=== PATIENT | female | born 1965 | race Caucasian/White ===

== ENCOUNTER 2018-10-09 17:58 | Observation (INO) | payer OTHER ==
[~2018-10-09] VITALS: Ht 172.7 cm; Wt 81.6 kg
--- NOTE | 2018-10-09 18:14 | ER Report ---
History and Physical Time Seen By MD: 18:11 Hx. of Stated Complaint: PATIENT HAD A COLONOSCOPY THIS MORNING. SHE IS REPORTING NAUSEA, AND CHILLS. ORAL TEMP 102.5 HPI/ROS CHIEF COMPLAINT: fever, nausea, chills HISTORY OF PRESENT ILLNESS: This is a 53 year old female. She had a colonoscopy this morning, screening, with two polyp removed. This afternoon started having chills and has a fever. Nausea. Mild pain in left lower abdomen. Has been passing gas. Has not been able to drink much or eat much because of the nausea, but no vomiting. No cough or shortness of breath. No dysuria, hematuria or frequency. No sore throat or runny nose. No skin rashes. No headache, but is a little dizzy. Talked to Dr. Swanson who recommended coming in to the ER for further evaluation. Allergies: Coded Allergies: Penicillins (Verified Allergy, Intermediate, HIVES, 10/01/18) Home Meds No Active Prescriptions or Reported Meds Reviewed Nurses Notes: Yes Hx Smoking: No Smoking Status: Never Smoker Hx Substance Use Disorder: No Hx Alcohol Use: Yes Constitutional Vital Sign - Last 24 Hours 10/09/18 10/09/18 10/09/18 10/09/18 18:04 18:08 18:28 18:33 Temp 102.5 Pulse 103 96 Resp 24 B/P (MAP) 128/84 (99) 128/84 108/74 (85) Pulse Ox 91 90 O2 Delivery Room Air 10/09/18 10/09/18 10/09/18 10/09/18 18:38 19:08 19:30 19:38 Pulse 90 90 92 B/P (MAP) 105/68 (80) Pulse Ox 87 89 Physical Exam General Appearance: The patient is alert. No acute distress. Eyes: Pupils are equal, round. No pallor, injection or icterus. ENT: Mucous membranes are moist. Normal oral mucosa. Neck: Supple and non tender. Respiratory: Lungs are clear to auscultation. Cardiovascular: Regular rate and rhythm. No murmurs, gallops or rubs. Normal capillary refill. No edema. Gastrointestinal: Abdomen is soft, tender in left lower abdomen. Nondistended. No rebound or guarding. Normal active bowel sounds. No costovertebral angle tenderness with percussion. Neurological: Alert and oriented x3. No focal neurologic deficits Skin: Warm and dry. Musculoskeletal: Extremities are nontender. Full range of motion. No tenderness in palpation of the cervical, thoracic and lumbar spine. DIFFERENTIAL DIAGNOSIS: After history and physical exam, differential diagnosis was considered for fever and some nausea with mild lower abdominal pain after having a screening colonoscopy this morning. Medical Decision Making Data Points Result Diagram: 10/09/183 10/09/183 Laboratory Hematology Test 10/09/18 18:23 White Blood Count 10.4 k/uL (4.5-11.0) Red Blood Count 4.26 M/uL (4.17-5.56) Hemoglobin 13.4 g/dL (12.0-16.0) Hematocrit 38.4 % (34.0-47.0) Mean Corpuscular Volume 90.3 fL (80.0-96.0) Mean Corpuscular Hemoglobin 31.5 pg (26.0-33.0) Mean Corpuscular Hemoglobin Concent 34.9 g/dL (32.0-36.0) Red Cell Distribution Width 13.6 % (11.5-14.5) Platelet Count 163 K/uL (150-450) Mean Platelet Volume 9.8 fL (7.2-11.1) Neutrophils (%) (Auto) 94.3 % (39.4-72.5) H Lymphocytes (%) (Auto) 2.9 % (17.6-49.6) L Monocytes (%) (Auto) 2.0 % (4.1-12.4) L Eosinophils (%) (Auto) 0.6 % (0.4-6.7) Basophils (%) (Auto) 0.2 % (0.3-1.4) L Nucleated RBC Relative Count (auto) 0.0 /100WBC Neutrophils # (Auto) 9.8 K/uL (2.0-7.4) H Lymphocytes # (Auto) 0.3 K/uL (1.3-3.6) L Monocytes # (Auto) 0.2 K/uL (0.3-1.0) L Eosinophils # (Auto) 0.1 K/uL (0.0-0.5) Basophils # (Auto) 0.0 K/uL (0.0-0.1) Nucleated RBC Absolute Count (auto) 0.00 K/uL Chemistry Test 10/09/18 18:23 Sodium Level 139 mmol/L (137-145) Potassium Level 3.8 mmol/L (3.5-5.0) Chloride Level 103 mmol/L (98-107) Carbon Dioxide Level 21 mmol/L (22-31) Blood Urea Nitrogen 11 mg/dl (7-18) Creatinine 0.80 mg/dl (0.52-1.04) Glomerular Filtration Rate Calc > 60.0 Random Glucose 125 mg/dl (75-110) Lactate 4.2 mmol/L (0.7-2.1) Calcium Level 9.3 mg/dl (8.4-10.2) Total Bilirubin 0.9 mg/dl (0.2-1.3) Aspartate Amino Transf (AST/SGOT) 35 U/L (0-35) Alanine Aminotransferase (ALT/SGPT) 40 U/L (0-56) Alkaline Phosphatase 68 U/L (0-126) Total Protein 7.1 g/dl (6.3-8.2) Albumin 4.2 g/dl (3.5-5.0) Urinalysis Test 10/09/18 18:05 Urine Color Yellow Urine Clarity Clear Urine pH 5.0 pH (4.8-9.5) Urine Specific [place] 1.011 Urine Protein Negative mg/dL (NEGATIVE) Urine Glucose (UA) Negative mg/dL (NEGATIVE) Urine Ketones Negative mg/dL (NEGATIVE) Urine Blood Negative (NEGATIVE) Urine Nitrite Negative (NEGATIVE) Urine Bilirubin Negative (NEGATIVE) Urine Urobilinogen Negative mg/dL (0.2-1.9) Urine Leukocyte Esterase Negative (NEGATIVE) Urine RBC None /HPF (0-2/HPF) Urine WBC 2 /HPF (0-5/HPF) Urine Squamous Epithelial Cells Many /LPF (</=FEW) Urine Bacteria Negative /HPF (NONE-FEW) Urine Mucus None /HPF (NONE-FEW) EKG/Imaging Imaging Examination: CHEST SINGLE AP Comparison: None. History: fever Findings: Cardiac and hilar contour size is normal. No consolidation, nodule, or peribronchial inflammation. No pneumothorax, edema, or effusion. Osseous structures are intact. IMPRESSION: Negative chest. Report Dictated By: Álvaro Welch MD at 10/09/2018 7:40 PM EXAMINATION: CT abdomen and pelvis with IV contrast HISTORY: Nausea, fever, chills. Colonoscopy with biopsy today. TECHNIQUE: Axial CT images of the abdomen and pelvis were obtained with IV contrast, with coronal and sagittal 2D reconstructed images. One of the following dose optimization techniques was utilized in the performance of this exam: Automated exposure control; adjustment of the mA and/or kV according to the patient's size; or use of an iterative reconstruction technique. Specific details can be referenced in the facility's radiology CT exam operational policy. Contrast: 75 mL of IV Isovue-370. COMPARISON: None. FINDINGS: Liver: Negative. Gallbladder and bile ducts: Negative. Spleen: Negative. Pancreas: Negative. Adrenal glands: Negative. Kidneys: Negative. No hydronephrosis or urinary calculi. The kidneys enhance normally. Bowel and peritoneum: The small bowel and colon are normal in caliber. No bowel obstruction. No localized bowel wall thickening. There is a hemostatic clip miguel angel ng the lower descending colon, presumably related to the colonoscopy of earlier today. No discrete colonic wall thickening in this region. No pericolonic fluid collection or hematoma. No free fluid or free intraperitoneal air. The appendix is surgically absent. Pelvic structures: Negative. Lymph node assessment: Negative. Vessels: Negative. Musculoskeletal: No acute osseous findings. Degenerative changes at the lumbosacral interspace with moderate disc space narrowing. Body wall: Negative. Lung bases: Negative. IMPRESSION: 1. No CT evidence of acute intra-abdominal pathology. 2. The small bowel and colon are unremarkable by CT. There is a hemostatic clip along the lower descending colon. No localized bowel wall thickening. No free fluid or free intraperitoneal air. Report Dictated By: Juan Torres MD at 10/09/2018 7:16 PM ED Course/Re-evaluation Clinical Indication for ER IV: Hydration, IV Access ED Course Labs obtained with IV start including lactate and blood cultures. Urinalysis and culture ordered. IV fluids given as she has not been able to take in much fluid today after the colonoscopy. Zofran given as well. Labs with normal white blood cell count although does show a left shift. Metabolic panel and urinalysis unremarkable. Lactate is a little elevated. Discussed with Dr. Swanson who will admit for observation. CT scan and chest x-ray results reviewed and listed above. Decision to Disposition Date: Oct 09, 2018 Decision to Disposition Time: 19:33 Depart Departure Latest Vital Signs Vital Signs Date Time Temp Pulse Resp B/P (MAP) Pulse Ox O2 Delivery O2 Flow Rate FiO2 10/09/18 19:38 92 10/09/18 19:30 105/68 (80) 10/09/18 19:08 89 10/09/18 18:08 102.5 24 Room Air Impression: Primary Impression: Fever Condition: Condition Unchanged Disposition: Admitted from ER New Scripts No Active Prescriptions or Reported Meds Problem Qualifiers Primary Impression: Fever Fever type: unspecified Qualified Codes: R50.9 - Fever, unspecified ANNE ROBERTS MD Oct 09, 2018 18:14
[2018-10-09] MEDS ORDERED: NS(*) 0.9% 1000 ML BAG 1,000 ML IV ONE (18:20)
[2018-10-09] MEDS ORDERED: ACETAMINOPHEN(*)1000 MG/100 ML 100 ML IVPB ONE (18:20)
[2018-10-09] MEDS ORDERED: ONDANSETRON 4 MG/2 ML VIAL IVP ONE (18:20)
[2018-10-09] MEDS ORDERED: IOPAMIDOL 76% 100 ML INFUS BTL 100 ML ONE (18:40)
[2018-10-09 18:45] LABS: PLATELET COUNT, AUTOMATED 163 K/uL (150-450)
--- NOTE | 2018-10-09 19:32 | RADIOLOGY IMAGING REPORT ---
FACILITY: [facility] [place] PATIENT NAME: Faviola Farris : 1965 MR: [id number] V: [id number] EXAM DATE: ORDERING PHYSICIAN: ANNE ROBERTS TECHNOLOGIST: Location: [facility] Patient: Faviola Farris : 1965 Visit/Account:[id number] Date of Sevice: 10/09/2018 EXAMINATION: CT abdomen and pelvis with IV contrast HISTORY: Nausea, fever, chills. Colonoscopy with biopsy today. TECHNIQUE: Axial CT images of the abdomen and pelvis were obtained with IV contrast, with coronal a nd sagittal 2D reconstructed images. One of the following dose optimization techniques was utilized in the performance of this exam: Autom ated exposure control; adjustment of the mA and/or kV according to the patient's size; or use of an i terative reconstruction technique. Specific details can be referenced in the facility's radiology C T exam operational policy. Contrast: 75 mL of IV Isovue-370. COMPARISON: None. FINDINGS: Liver: Negative. Gallbladder and bile ducts: Negative. Spleen: Negative. Pancreas: Negative. Adrenal glands: Negative. Kidneys: Negative. No hydronephrosis or urinary calculi. The kidneys enhance normally. Bowel and peritoneum: The small bowel and colon are normal in caliber. No bowel obstruction. No loca lized bowel wall thickening. There is a hemostatic clip along the lower descending colon, presumably related to the colonoscopy of earlier today. No discrete colonic wall thickening in this region. No p ericolonic fluid collection or hematoma. No free fluid or free intraperitoneal air. The appendix is s urgically absent. Pelvic structures: Negative. Lymph node assessment: Negative. Vessels: Negative. Musculoskeletal: No acute osseous findings. Degenerative changes at the lumbosacral interspace with moderate disc space narrowing. Body wall: Negative. Lung bases: Negative. IMPRESSION: 1. No CT evidence of acute intra-abdominal pathology. 2. The small bowel and colon are unremarkable by CT. There is a hemostatic clip along the lower desce nding colon. No localized bowel wall thickening. No free fluid or free intraperitoneal air. Report Dictated By: Juan Torres MD at 10/09/2018 7:16 PM Report E-Signed By: Juan Torres MD at 10/09/2018 7:25 PM WSN:[id number]
[2018-10-09] MEDS ORDERED: NS(*) 0.9% 1000 ML BAG 1,000 ML IV PRN (19:38)
[2018-10-09] MEDS ORDERED: FLUSH 10 ML SYR IVP PRN (19:40)
[2018-10-09] MEDS ORDERED: MORPHINE 2 MG/ML SYR IVP PRN (19:40)
[2018-10-09] MEDS ORDERED: ONDANSETRON 4 MG/2 ML VIAL IVP PRN (19:40)
--- NOTE | 2018-10-09 19:47 | RADIOLOGY IMAGING REPORT ---
FACILITY: [facility] PATIENT NAME: Faviola Farris : 1965 MR: [id number] V: [id number] EXAM DATE: ORDERING PHYSICIAN: ANNE ROBERTS TECHNOLOGIST: Location: [facility] [place] Patient: Faviola Farris : 1965 Visit/Account:[id number] Date of Sevice: 10/09/2018 Examination: CHEST SINGLE AP Comparison: None. History: fever Findings: Cardiac and hilar contour size is normal. No consolidation, nodule, or peribronchial inflam mation. No pneumothorax, edema, or effusion. Osseous structures are intact. IMPRESSION: Negative chest. Report Dictated By: Álvaro Welch MD at 10/09/2018 7:40 PM Report E-Signed By: Álvaro Welch MD at 10/09/2018 7:41 PM WSN:[id number]
--- NOTE | 2018-10-09 19:52 | Gen Surgery History & Physical ---
History of Present Illness Chief Complaint Fevers/chills History of Present Illness 53yo female, colonoscopy with polypectomy completed this morning without problems, called the OR this afternoon reporting that she had felt well when she went home but a few hours later, shortly after eating breakfast, developed chills and felt cold. She then had a fever. We instructed her to come in to the ER for evaluation. Minimal abdominal discomfort. She feels bloated. No flatus since this morning. History Home Meds No Active Prescriptions or Reported Meds Allergies: Coded Allergies: Penicillins (Verified Allergy, Intermediate, HIVES, 10/01/18) Review of Systems All Systems Reviewed/Normal: Yes, Except as Noted Constitutional: Fever, Chills Exam General Appearance: Alert, Awake, No Acute Distress, Afebrile Neuro: No Gross deficits Eyes: PERRLA GI: Abd Soft and Non-Tender Extremities: Warm, Perfused Psych: Alert & Oriented X3, Appropriate Mood & Affect Medical Decision Making Data Points Result Diagram: 10/09/18 18210/09/18 182 Assessment and Plan Problems: (1) Fever and chills Status: Acute Assessment & Plan: 10/09/18: Admit for observation, NPO, IV fluids. Will empirically start IV abx, levo/flagyl due to PCN allergy. Not sure the cause of her symptoms. CT negative for intraabdominal pathology. Possibly bacteremic from polypectomy. Will cover with abx and see how she does overnight. Will advance diet when bloating improves and she passes flatus. I have explained the plan with the patient and she seems agreeable with this plan. (2) Status post colonoscopy with polypectomy Status: Acute Condition Stable. Time Spent: < 30 min Venous Thromboembolism VTE Risk Physician Assess for VTE Risk: Yes Patient's VTE Risk: Low VTE Diagnostic Test 2 Days Prior to Admit: No Antithrombotics Is Pt On Any Antithrombotics?: No KAM MENDEZ MD Oct 09, 2018 19:52
[2018-10-09 20:03] VITALS: BP 121/72
[2018-10-09] MEDS ORDERED: LEVOFLOXACIN/D5W*500 MG/100 ML 100 ML IVPB SCH (21:00)
[2018-10-09 22:59] VITALS: BP 108/78
[2018-10-09] MEDS: ACETAMINOPHEN(*)1000 MG/100 ML 100 ML IVPB SCH (23:55)
[2018-10-10] MEDS ORDERED: metroNIDAZOLE* 500MG/100ML BAG 100 ML IVPB SCH ×2 (02:00)
[2018-10-10 05:46] VITALS: BP 109/72
[2018-10-10 05:49] LABS: PLATELET COUNT, AUTOMATED 135 K/uL (150-450)
[2018-10-10] MEDS: ACETAMINOPHEN(*)1000 MG/100 ML 100 ML IVPB SCH (05:54)
[2018-10-10] MEDS ORDERED: NS(*) 0.9% 1000 ML BAG 1,000 ML IV PRN (07:23)
[2018-10-10 07:29] VITALS: BP 112/75
--- NOTE | 2018-10-10 07:29 | General Surgery Progress Note ---
Subjective Progress Notes Subjective No complaints this morning. No pain. Passing flatus. Physical Exam Vital Signs Date Time Temp Pulse Resp B/P (MAP) Pulse Ox O2 Delivery O2 Flow Rate FiO2 10/10/18 05:46 98.9 77 18 109/72 (84) 99 Nasal Cannula 1.0 Intake and Output 10/10/18 07:02 Intake Total 1200 ml Balance 1200 ml Intake IV Total 1200 ml # Voids 2 General Appearance: Alert, Awake, No Acute Distress, Afebrile GI: Soft and Non-Tender Extremities: Warm, Perfused Result Diagram: 10/10/1852910/10/18529 Assessment and Plan Problems: (1) Fever and chills Status: Acute Assessment & Plan: 10/09/18: Admit for observation, NPO, IV fluids. Will empirically start IV abx, levo/flagyl due to PCN allergy. Not sure the cause of her symptoms. CT negative for intraabdominal pathology. Possibly bacteremic from polypectomy. Will cover with abx and see how she does overnight. Will advance diet when bloating improves and she passes flatus. I have explained the plan with the patient and she seems agreeable with this plan. 10/10/18: Doing much better this morning. Will convert meds to PO, start clear diet, if tolerates advance diet to regular, follow temps, d/c home later today if remains afebrile, without pain, and tolerates diet. (2) Status post colonoscopy with polypectomy Status: Acute (3) Postpolypectomy electrocoagulation syndrome Status: Acute Condition Stable. Time Spent: < 30 min Exam Sepsis Risk: No Definite Risk KAM MENDEZ MD Oct 10, 2018 07:29
[2018-10-10] MEDS ORDERED: ENOXAPARIN 40 MG/0.4ML SYR SC SCH (09:00)
[2018-10-10] MEDS ORDERED: PANTOPRAZOLE SOD 40 MG TABEC PO SCH (09:00)
[2018-10-10] MEDS ORDERED: PANTOPRAZOLE SOD 40 MG IV VIAL IVP SCH (09:00)
[2018-10-10] MEDS: METRONIDAZOLE 500 MG TABLET PO SCH ×2 (09:26→13:19)
[2018-10-10] MEDS ORDERED: LEVOFLOXACIN 500 MG TAB PO SCH (10:00)
[2018-10-10 10:02] VITALS: Ht 172.7 cm; Wt 81.6 kg
[2018-10-10 10:53] VITALS: BP 127/72
--- NOTE | 2018-10-10 14:08 | Antimicrobial Stewardship ---
Antimicrobial Stewardship Empiricly appropriate: Yes (On Flagyl and Levaquin for suspected bacterimia) Approriate Cultures done: No Renal/Hepatic dosing: Yes Reviewed for Drug Interaction: Yes Monitored for Toxicities: Yes Clinically stable/improving: Yes IV to PO Opportunity: Yes (Switched to po this morning and may go home if stays afebrile this afternoon.) Determine cumulative duration: individualized HAMILTON ROUSSEAU Oct 10, 2018 14:08
[2018-10-10 14:59] VITALS: BP 105/70
[2018-10-10] MEDS ORDERED: METR500T15 PO (16:25)
[2018-10-10] MEDS ORDERED: LEVO-85 PO (16:25)
--- NOTE | 2018-10-10 16:28 | Short(Outpt) Discharge Summary ---
Discharge Summary Reason for Hosp/Final Diag: (1) Fever and chills Status: Resolved Hospital Course & Plan: 10/09/18: Admit for observation, NPO, IV fluids. Will empirically start IV abx, levo/flagyl due to PCN allergy. Not sure the cause of her symptoms. CT negative for intraabdominal pathology. Possibly bacteremic from polypectomy. Will cover with abx and see how she does overnight. Will advance diet when bloating improves and she passes flatus. I have explained the plan with the patient and she seems agreeable with this plan. 10/10/18: Doing much better this morning. Will convert meds to PO, start clear diet, if tolerates advance diet to regular, follow temps, d/c home later today if remains afebrile, without pain, and tolerates diet. 10/10/18 (afternoon): Doing well. No fevers today. No abdominal pain. Tolerating diet. Wants to go home. Will d/c to home. (2) Status post colonoscopy with polypectomy Status: Chronic (3) Postpolypectomy electrocoagulation syndrome Status: Resolved Departure Discharge to: Home, Self Care Discharge Instructions Home Meds Active Scripts Metronidazole (METRONIDAZOLE) 500 Mg Tablet, 1 TAB PO TID, #16 TAB 0 Refills Prov:KAM MENDEZ MD 10/10/18 Levofloxacin 500 Mg Tab (LEVAQUIN 500 MG TAB) 500 Mg Tablet, 1 TAB PO QDAY, #5 TAB 0 Refills Prov:KAM MENDEZ MD 10/10/18 Diet: Regular Activity: As Tolerated Special Instructions: Please take both antibiotics for 5 more days then stop when you run out of pills. Call my office or come in to the ER if you develop worsening abdominal pain, nausea, vomiting, fevers, or chills. One of the 2 polyps that I removed from your colon was precancerous, a tubular adenoma. Your next colonoscopy be in 5 years due to this polyp. KAM MENDEZ MD Oct 10, 2018 16:28
== END 2018-10-10 16:24 | disposition home or self-care (01) ==
LOC: ER 18:17 → INTOOBSV 19:51 → MED 19:51
PROVIDERS: ADMIT Surgery; ATTEND Surgery
DX: R50.9 Fever, unspecified (principal); Z98.890 Other specified postprocedural states
CPT/HCPCS: 36415; 71045; 74177; 81001; 83605; 85025; 87040; 87088; 96361; 96374; 99284; G0378; J0131; J1650; J1956; J2405; J3490; J7030; Q9967; 82040; 82247; 82310; 82374; 82435; 82565; 82947; 84075; 84132; 84155; 84295; 84450; 84460; 84520

== ENCOUNTER → 2018-10-09 | Day surgery (SDC) | payer OTHER ==
[~2018-10-09] VITALS: Ht 172.7 cm; Wt 83.0 kg
[~2018-10-09] MED LIST: LEVO-85 PO; LIDOCAINE MPF 1% 5 ML VIAL ONE; LIDOCAINE/SOD BICARB 8.4% SYR ID ONE; METR500T15 PO; NORMOSOL R SOLN(*) 1000 ML BAG 1,000 ML IV PRN; PROPOFOL EMUL(*) 10MG/ML 20 ML 20 ML ONE; PROPOFOL EMUL(*) 10MG/ML 20 ML 40 ML ONE
[2018-10-09 06:58] VITALS: BP 122/82
[2018-10-09 08:11] VITALS: BP 114/73
--- NOTE | 2018-10-09 08:20 | Short(Outpt) Discharge Summary ---
Discharge Summary Reason for Hosp/Final Diag: (1) Colon cancer screening Status: Chronic Hospital Course & Plan: Colonoscopy with polypectomy x2 completed without problems. Departure Discharge to: Home, Self Care Discharge Instructions Home Meds No Active Prescriptions or Reported Meds Diet: Regular Activity: As Tolerated Special Instructions: Your colonoscopy was completed without problems and your prep was excellent (Good Job!!). I removed 2 polyps from your colon and they were sent to pathology. My office will call you in the next week or two to let you know what the polyps are and when your next colonoscopy should be (either 5 or 10 years) depending on pathology results. KAM MENDEZ MD Oct 09, 2018 08:20
--- NOTE | 2018-10-09 08:21 | NUR ---
0811 PT ARRIVED TO [place] VIA CART, SBAR FROM ASYA BRIONES AND DR. TYSON, FRANCIE, PT RESTING L LATERAL POSITION, UNRESPONSIVE, PARTNER KEN AT BEDSIDE 0815 FRANCIE, ANDREA URIBE AT BEDSIDE TO DISCUSS FINDINGS WITH PARTNER
--- NOTE | 2018-10-09 08:46 | NUR ---
0826 PT MOVED TP ROOM AIR, SATTING WELL 0842 PT TOLERATING PHIL CRACKERS AND GRAPE JUICE, IN SF POSITION. DENIES PAIN OR NAUSEA 0845 D/C IV FROM TUBING, WHOLE BAG INFUSED
[2018-10-09 08:56] VITALS: BP 124/91
[2018-10-09 08:58] VITALS: BP 104/69
--- NOTE | 2018-10-09 09:23 | NUR ---
0855 PT READY TO GET UP, ORTHOSTATICS DONE, STABLE, PT DENIES DIZZINESS, REASSESSED, UNREMARKABLE. ALLOWED TO DRESS 0900 IV OUT, PRESSURE DRESSING APPLIED, D/C INSTRUCTIONS COVERED, ALL QUESTIONS ANSWERED 09 OUT TO CAR BY FOOT, STEADY, VISUALIZED PT SELF TRANSFER INTO VEHICLE OUTSIDE OR ER ENTRANCE, ALL BELONGINGS WITH PT.
--- NOTE | 2018-10-09 17:44 | NUR ---
1734- JUAN BROUGHT THE PHONE TO ME TO TALK TO PT. THAT COLONOSCOPY THIS AM. PT. STATED THE SHE HAS HAD CHILLS OFF AND ON SINCE 1400, SHE WAS NAUSEATED AND LIGHT HEADED ALSO SINCE 1400 AND WAS RUNNING A SLIGHT FEVER OF 99.4. SHE STATED THAT SHE FELT FINE ALL MORNING AND TOOK A NAP AND WHEN SHE WOKE UP IS WHEN SHE STARTED TO FEEL ILL. 154- I WENT OVER TO DR. MENDEZ'S CLINIC AND TOLD HIM ABOUT HER SYMPTOMS AND HE STATED THAT I SHOULD LET HER KNOW TO GO TO THE ER TO GET CHECKED OUT. 1541- I CALLED THE PT. AND ADVISED HER TO GO TO THE ER. PT. STATED THAT HER CHILLS WERE A LITTLE BETTER AND I STILL TOLD HER THAT DR. MENDEZ WOULD LIKE HER TO GO TO THE ER. PT. STATED THAT SHE WOULD GO TO THE ER.
== END ==
LOC: EDBD 00:18 → OR 00:18
PROVIDERS: ATTEND Surgery
DX: Z12.11 Encounter for screening for malignant neoplasm of colon (principal); K63.5 Polyp of colon; D12.4 Benign neoplasm of descending colon
CPT/HCPCS: 00811; 45385; 88305; J2001; J2704